=== PATIENT | male | born 1995 | race Caucasian/White ===

== ENCOUNTER 2020-11-08 10:03 | Emergency (ER) | payer BC ==
[2020-11-08 10:22] VITALS: O2SAT 99
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
[2020-11-08 11:05] VITALS: BP 134/98; PULSE 68
== END 2020-11-08 11:06 | disposition home or self-care (01) ==
LOC: ED 10:03
DX: S62.393A Other fracture of third metacarpal bone, left hand, initial encounter for closed fracture (principal); V29.3XXA Motorcycle rider (driver) (passenger) injured in unspecified nontraffic accident, initial encounter
CPT/HCPCS: 73130; 99283; A4570